=== PATIENT | female | born 1970 | race Caucasian/White ===

== ENCOUNTER → 2020-05-07 | Outpatient (CLI) | payer OTHER ==
[~2020-05-07] MED LIST: HYDR1TAB94 PO; LEVSOD100 PO; Norco 5-325 Ta1 EACH PO; VENL75ER PO; VENLAFAXINE HC150 MG PO; Zofran Odt4 MG SL
[2020-05-09 16:11] LABS: HPV 16 Negative (Negative); HPV 18 Negative (Negative); HPV OTHER HR TYPES Negative (Negative)
== END | disposition home or self-care (01) ==
LOC: LAB SHORT 17:39 → LAB 17:39
PROVIDERS: Advanced Practice Midwife
DX: Z01.419 Encounter for gynecological examination (general) (routine) without abnormal findings (principal)
CPT/HCPCS: 87624; G0123

== ENCOUNTER → 2020-06-12 | Outpatient (CLI) | payer OTHER | END | disposition home or self-care (01) | LOC: LAB 14:36 → LAB SHORT 14:36 | DX: D22.5 Melanocytic nevi of trunk (principal) | CPT/HCPCS: 88305 ==